=== PATIENT | male | born 1995 | race Caucasian/White ===

== ENCOUNTER 2023-11-10 08:32 | Emergency (ER) | payer BC ==
[~2023-11-10] VITALS: Ht 175.3 cm; Wt 55.4 kg
[2023-11-10 08:50] VITALS: BP 121/68; PULSE 59; RESP 16; TEMP 98.1; O2SAT 100
[2023-11-10] MEDS ORDERED: TRAZ-251 PO (09:30)
[2023-11-10] MEDS ORDERED: ESCI10TA PO (09:30)
== END 2023-11-10 10:30 | disposition home or self-care (01) ==
LOC: ER 08:32
DX: F41.1 Generalized anxiety disorder (principal); F17.200 Nicotine dependence, unspecified, uncomplicated
CPT/HCPCS: 99283